=== PATIENT | male | born 1950 | race Two or more races ===

== ENCOUNTER 2024-06-27 12:44 | Inpatient (IN) | payer OTHER ==
[~2024-06-27] VITALS: Ht 170.2 cm; Wt 52.2 kg
[2024-06-27] MEDS ORDERED: AMLODIPINE-OLM1 EAC2 PO (14:01)
[2024-06-27] MEDS ORDERED: HYDROCHLOROTHIA25 MG PO (14:01)
[2024-06-27] MEDS ORDERED: NORVASC5 MG PO (14:01)
--- NOTE | 2024-06-27 14:03 | NUR ---
PTE ALERTA Y ORIENTADO X3 EN COMPANIA DE FAMILIAR EL CUAL REFIERE TRAER A PTE POR REFERIDO MEDICO DR. FREEDMAN (PNEUMOLOGO) POR LIQUIDOS ACUMULADOS EN AMBOS PULMONES. SE MIDEN S/V Y SE UBICA.
[2024-06-27] MEDS ORDERED: 0.9 % SODIUM CHLORIDE 1,000 ML IV SCH ×2 (14:30→19:30)
[2024-06-27 15:11] LABS: PH,URINE 5.5 (5.0-8.0); URINE APPEARANCE Turbid; URINE BILIRRUBIN Small (NEGATIVE); URINE BLOOD Negative; URINE COLOR Orange; URINE GLUCOSE Negative (NEGATIVE); URINE KETONE Trace (NEGATIVE); URINE LEUKOCYTE Trace; URINE NITRATE Negative; URINE PROTEIN 30 (NEGATIVE)
[2024-06-27 15:15] LABS: URINE BACTERIA 6.2 uL (0.0-1933); URINE RBC 20.9 uL (0.0-20.8); URINE WBC 3.2 uL (0.0-23.2)
[2024-06-27 15:16] LABS: URINE CAST 1.06 uL (0.0-1.40)
[2024-06-27 15:16] LABS: CALCIUM 8.4 mg/dL (8.5-10.1); CREATININE SERUM 0.63 mg/dL (0.70-1.30); GFR 124.83; HEMOGLOBIN 11.2 g/dL (13-16.00); MEAN CELL VOLUME 92.6 fL (80.0-100.00); MEAN CORPUSCULAR HEMOGLOBIN 30.4 pg (27.00-32.0); MEAN CORPUSCULAR HGB CONC 32.9 g/dl (32.0-36.0); PLATELET COUNT 388 K/uL (150-450); POTASSIUM 4.14 mEq/L (3.5-5.1); RED BLOOD COUNT 3.68 M/uL (4.00-6.00); RED CELL DISTRIBUTION WIDTH 13.5 % (11.5-14.5)
[2024-06-27 16:36] LABS: ABG PH 7.424 (7.35-7.45); ABG PO2 78.6 mmHg (80-100); ABG pCO2 38.5 mmHg (35-45); BASE EXCESS 0.4 mmol/l; BICARBONATE 24.6 mmol/l (23-25); SaO2 95.8 %; Tco2 25.8 mmol/l; allen test SATISFACTORY; o2 21 %; puncture site RADIAL RIGHT
[2024-06-27] MEDS ORDERED: IPRATROPIUM BROMIDE 0.5 MG/2.5 ML AMPUL.NEB IH SCH (19:29)
[2024-06-27] MEDS ORDERED: VANCOMYCIN HCL 1,000 MG VIAL IV SCH (19:31)
[2024-06-27] MEDS ORDERED: PIPERACILLIN/TAZOBACTAM SODIUM 3.375 GM in DEXTROSE 5 % IN WATER 100 ML IV SCH (19:31)
[2024-06-27] MEDS ORDERED: ACETAMINOPHEN 500 MG GEL..CAP PO PRN (19:45)
[2024-06-27] MEDS ORDERED: 0.9 % SODIUM CHLORIDE 500 ML IV ONE (19:45)
[2024-06-28] VITALS (8 sets, daily range): BP systolic 110–117; BP diastolic 65–70; O2SAT 93–97
[2024-06-28 01:16] LABS: INR 1.26; PARTIAL THROMBOPLASTIN TIME 34.5 SECONDS (22.0-34.0); PROTHROMBIN TIME 13.5 SECONDS (9.0-11.5)
[2024-06-28] MEDS ORDERED: FAMOTIDINE/PF 20 MG in 0.9 % SODIUM CHLORIDE 8 ML IV PUSH SCH (09:00)
[2024-06-28] MEDS ORDERED: ENOXAPARIN SODIUM 40 MG/0.4 ML SYRINGE SUBCUTANEO SCH (09:00)
[2024-06-28 11:07] LABS: ALBUMIN 1.9 gm/dL (3.4-5.0); CALCIUM 7.9 mg/dL (8.5-10.1); CREATININE SERUM 0.5 mg/dL (0.70-1.30); GFR 162.99; POTASSIUM 3.99 mEq/L (3.5-5.1)
[2024-06-28] MEDS ORDERED: LACTOBACILLUS ACIDOPHILUS 1 CAP CAP PO SCH (17:00)
[2024-06-28 19:33] LABS: PLEURAL FLUID APPEARANCE CLOUDY; PLEURAL FLUID COLOR YELLOW
[2024-06-28 19:59] LABS: TP PLEURAL FLUID 4.2 g/dl
[2024-06-28 20:01] LABS: CHOL PLEURAL FLUID < 50 mg/dl; GLU PLEURAL FLUID < 1 mg/dl; LDH PLEURAL FLUID 1457 U/L
[2024-06-28 20:08] LABS: MONONUCLEAR 6 %; POLYMORPHONUCLEAR 94 %
[2024-06-28] MEDS ORDERED: fentaNYL CITRATE 50 MCG/ML AMPUL IV ONE (21:15)
[2024-06-28] MEDS ORDERED: MEPERIDINE HCL 25 MG/ML AMPUL IM PRN (23:00)
[2024-06-29] VITALS (9 sets, daily range): BP systolic 102–125; BP diastolic 59–75; O2SAT 94–97
[2024-06-30] VITALS (9 sets, daily range): BP systolic 111–131; BP diastolic 64–73; O2SAT 90–98
[2024-06-30 08:05] LABS: HEMATOCRIT 35.9 % (39.0-48.0); HEMOGLOBIN 12.1 g/dL (13-16.00); MEAN CELL VOLUME 91.3 fL (80.0-100.00); MEAN CORPUSCULAR HEMOGLOBIN 30.8 pg (27.00-32.0); MEAN CORPUSCULAR HGB CONC 33.7 g/dl (32.0-36.0); PLATELET COUNT 336 K/uL (150-450); RED BLOOD COUNT 3.93 M/uL (4.00-6.00); RED CELL DISTRIBUTION WIDTH 13.3 % (11.5-14.5)
[2024-06-30 08:53] LABS: ALBUMIN 1.7 gm/dL (3.4-5.0); BILIRUBIN TOTAL 0.71 mg/dL (0.3-1.2); CALCIUM 7.6 mg/dL (8.5-10.1); CREATININE SERUM 0.39 mg/dL (0.70-1.30); GFR 217.11; POTASSIUM 3.61 mEq/L (3.5-5.1); TOTAL PROTEIN 4.7 gm/dL (6.4-8.2)
[2024-06-30] MEDS ORDERED: SODIUM CHLORIDE 0.45 % 1,000 ML IV SCH (13:00)
[2024-06-30] MEDS ORDERED: VANCOMYCIN HCL 5 MG/ML REDILUIDO IV SCH (17:00)
[2024-07-01] VITALS (9 sets, daily range): BP systolic 117–131; BP diastolic 65–75; O2SAT 90–98
[2024-07-01 18:46] LABS: HEMATOCRIT 36.6 % (39.0-48.0); HEMOGLOBIN 12.4 g/dL (13-16.00); MEAN CELL VOLUME 91.5 fL (80.0-100.00); MEAN CORPUSCULAR HGB CONC 33.8 g/dl (32.0-36.0); PLATELET COUNT 291 K/uL (150-450); RED CELL DISTRIBUTION WIDTH 13.9 % (11.5-14.5)
[2024-07-01] MEDS ORDERED: FAMOTIDINE/PF 20 MG in 0.9 % SODIUM CHLORIDE 8 ML IV PUSH SCH (21:00)
[2024-07-02] VITALS (10 sets, daily range): BP systolic 109–122; BP diastolic 63–75; O2SAT 90–98
[2024-07-03] VITALS (8 sets, daily range): BP systolic 117–134; BP diastolic 63–78; O2SAT 90–100
[2024-07-03 11:25] LABS: HEMATOCRIT 38.7 % (39.0-48.0); HEMOGLOBIN 13.1 g/dL (13-16.00); MEAN CELL VOLUME 90.2 fL (80.0-100.00); MEAN CORPUSCULAR HEMOGLOBIN 30.5 pg (27.00-32.0); MEAN CORPUSCULAR HGB CONC 33.9 g/dl (32.0-36.0); PLATELET COUNT 321 K/uL (150-450); RED BLOOD COUNT 4.29 M/uL (4.00-6.00); RED CELL DISTRIBUTION WIDTH 13.6 % (11.5-14.5)
[2024-07-03 12:39] LABS: ALBUMIN 1.9 gm/dL (3.4-5.0); BILIRUBIN TOTAL 0.94 mg/dL (0.3-1.2); CALCIUM 7.9 mg/dL (8.5-10.1); CREATININE SERUM 0.48 mg/dL (0.70-1.30); GFR 170.85; GLOBULINA 3.4 G/DL (2.4-3.5); TOTAL PROTEIN 5.3 gm/dL (6.4-8.2)
[2024-07-03 13:42] LABS: C-REACTIVE PROTEIN 5.71 MG/DL (0.00-0.29)
[2024-07-03 13:44] LABS: POTASSIUM 2.93 mEq/L (3.5-5.1)
[2024-07-04] VITALS (8 sets, daily range): BP systolic 120–136; BP diastolic 66–74; O2SAT 95–100
[2024-07-04] MEDS ORDERED: POTASSIUM CHLORIDE IN WATER 40 MEQ/100 ML PIGGYBAG IV NR (11:30)
[2024-07-05] VITALS (9 sets, daily range): BP systolic 114–157; BP diastolic 68–84; O2SAT 90–100
[2024-07-05] MEDS ORDERED: FAMOtidine 20 MG TABLET PO SCH (09:00)
[2024-07-05] MEDS ORDERED: BENZONATATE 100 MG CAPSULE PO SCH (18:30)
[2024-07-06] VITALS (8 sets, daily range): BP systolic 128–156; BP diastolic 69–72; O2SAT 89–99
[2024-07-06 08:17] LABS: HEMATOCRIT 35.9 % (39.0-48.0); HEMOGLOBIN 12.4 g/dL (13-16.00); MEAN CELL VOLUME 88.7 fL (80.0-100.00); MEAN CORPUSCULAR HEMOGLOBIN 30.6 pg (27.00-32.0); MEAN CORPUSCULAR HGB CONC 34.5 g/dl (32.0-36.0); PLATELET COUNT 280 K/uL (150-450); RED BLOOD COUNT 4.05 M/uL (4.00-6.00); RED CELL DISTRIBUTION WIDTH 13.8 % (11.5-14.5)
[2024-07-06 08:33] LABS: ALBUMIN 1.9 gm/dL (3.4-5.0); BILIRUBIN TOTAL 0.77 mg/dL (0.3-1.2); CALCIUM 7.8 mg/dL (8.5-10.1); CREATININE SERUM 0.44 mg/dL (0.70-1.30); GFR 188.9; GLOBULINA 3.3 G/DL (2.4-3.5); POTASSIUM 3.31 mEq/L (3.5-5.1); TOTAL PROTEIN 5.2 gm/dL (6.4-8.2)
[2024-07-06 08:57] LABS: C-REACTIVE PROTEIN 4.06 MG/DL (0.00-0.29)
[2024-07-06] MEDS ORDERED: BENZONATATE 200 MG CAPSULE PO SCH (09:00)
[2024-07-06 09:11] LABS: ERYTHROCYTE SEDIMENTATION RATE 38 mm/hr
[2024-07-06] MEDS ORDERED: AMPICILLIN SODIUM 2,000 MG VIAL IV SCH (12:00)
[2024-07-06] MEDS ORDERED: MEROPENEM 500 MG/VIAL VIAL IV SCH (12:00)
[2024-07-06] MEDS ORDERED: AMPICILLIN SODIUM 2,000 MG in 0.9 % SODIUM CHLORIDE 100 ML IV SCH (12:00)
[2024-07-06] MEDS ORDERED: POTASSIUM CHLORIDE IN WATER 100 ML IV NR (14:45)
[2024-07-06] MEDS ORDERED: FLUCONAZOLE IN NACL,ISO-OSM 50 ML IV SCH (17:00)
[2024-07-07] VITALS (9 sets, daily range): BP systolic 120–130; BP diastolic 67–69; O2SAT 93–100
[2024-07-07] MEDS ORDERED: FLUCONAZOLE IN NACL,ISO-OSM 2 MG/ML ML IV SCH (17:00)
[2024-07-07 19:30] LABS: URINE APPEARANCE Turbid; URINE BILIRRUBIN Negative (NEGATIVE); URINE BLOOD Negative; URINE COLOR Yellow; URINE GLUCOSE Negative (NEGATIVE); URINE KETONE Trace (NEGATIVE); URINE LEUKOCYTE Negative; URINE NITRATE Negative; URINE PROTEIN Negative (NEGATIVE)
[2024-07-07 19:33] LABS: URINE EPITHELIAL CELLS 11.1 uL (0.0-38.8); URINE RBC 13.5 uL (0.0-20.8); URINE WBC 3.4 uL (0.0-23.2)
[2024-07-07 19:35] LABS: URINE CAST 0.76 uL (0.0-1.40)
[2024-07-08] VITALS (10 sets, daily range): BP systolic 117–157; BP diastolic 66–85; O2SAT 90–99
[2024-07-08 06:59] LABS: HEMATOCRIT 33.3 % (39.0-48.0); HEMOGLOBIN 11.6 g/dL (13-16.00); MEAN CELL VOLUME 88.4 fL (80.0-100.00); MEAN CORPUSCULAR HEMOGLOBIN 30.9 pg (27.00-32.0); PLATELET COUNT 293 K/uL (150-450); RED BLOOD COUNT 3.76 M/uL (4.00-6.00); RED CELL DISTRIBUTION WIDTH 14.1 % (11.5-14.5)
[2024-07-08 20:28] LABS: ABG PH 7.419 (7.35-7.45); ABG pCO2 47.3 mmHg (35-45); BASE EXCESS 4.4 mmol/l; BICARBONATE 29.9 mmol/l (23-25); SaO2 93.6 %; Tco2 31.3 mmol/l
[2024-07-08 21:09] LABS: allen test SATISFACTORY; o2 44 %; puncture site RADIAL RIGHT
[2024-07-09] VITALS (7 sets, daily range): BP systolic 114–134; BP diastolic 59–68; O2SAT 85–100
[2024-07-10] VITALS (7 sets, daily range): BP systolic 119–121; BP diastolic 59–69; O2SAT 97–100
[2024-07-10 06:05] LABS: HEMATOCRIT 33.1 % (39.0-48.0); MEAN CELL VOLUME 90.2 fL (80.0-100.00); MEAN CORPUSCULAR HEMOGLOBIN 30.1 pg (27.00-32.0); MEAN CORPUSCULAR HGB CONC 33.4 g/dl (32.0-36.0); PLATELET COUNT 284 K/uL (150-450); RED BLOOD COUNT 3.67 M/uL (4.00-6.00); RED CELL DISTRIBUTION WIDTH 14.1 % (11.5-14.5)
[2024-07-10 06:30] LABS: ALBUMIN 1.8 gm/dL (3.4-5.0); CALCIUM 8.1 mg/dL (8.5-10.1); CREATININE SERUM 0.4 mg/dL (0.70-1.30); GFR 210.86; GLOBULINA 3.4 G/DL (2.4-3.5); POTASSIUM 3.8 mEq/L (3.5-5.1); TOTAL PROTEIN 5.2 gm/dL (6.4-8.2)
[2024-07-10 06:47] LABS: C-REACTIVE PROTEIN 7.49 MG/DL (0.00-0.29)
[2024-07-10 21:43] LABS: PLEURAL FLUID APPEARANCE HAZY; PLEURAL FLUID COLOR YELLOW
[2024-07-10 21:55] LABS: TP PLEURAL FLUID 1.8 g/dl
[2024-07-10 22:22] LABS: POLYMORPHONUCLEAR 30 %
[2024-07-10 22:23] LABS: MONONUCLEAR 70 %
[2024-07-11] VITALS (8 sets, daily range): BP systolic 120–130; BP diastolic 66–72; O2SAT 84–100
[2024-07-11] MEDS ORDERED: VITAMIN B COMPLEX/LYSINE 1 ML ML PO SCH (17:00)
[2024-07-12] VITALS (10 sets, daily range): BP systolic 130–138; BP diastolic 57–76; O2SAT 90–100
[2024-07-13] VITALS (8 sets, daily range): BP systolic 127–166; BP diastolic 67–71; O2SAT 91–98
[2024-07-13 08:30] LABS: ALBUMIN 1.7 gm/dL (3.4-5.0); BILIRUBIN TOTAL 0.88 mg/dL (0.3-1.2); CALCIUM 7.9 mg/dL (8.5-10.1); CREATININE SERUM 0.35 mg/dL (0.70-1.30); GFR 245.99; GLOBULINA 3.4 G/DL (2.4-3.5); POTASSIUM 3.74 mEq/L (3.5-5.1); TOTAL PROTEIN 5.1 gm/dL (6.4-8.2)
[2024-07-13 08:32] LABS: C-REACTIVE PROTEIN 11.5 MG/DL (0.00-0.29)
[2024-07-13 08:40] LABS: HEMATOCRIT 30.4 % (39.0-48.0); HEMOGLOBIN 10.3 g/dL (13-16.00); MEAN CELL VOLUME 90.2 fL (80.0-100.00); MEAN CORPUSCULAR HEMOGLOBIN 30.4 pg (27.00-32.0); MEAN CORPUSCULAR HGB CONC 33.7 g/dl (32.0-36.0); PLATELET COUNT 279 K/uL (150-450); RED BLOOD COUNT 3.37 M/uL (4.00-6.00); RED CELL DISTRIBUTION WIDTH 14.4 % (11.5-14.5)
[2024-07-13 08:45] LABS: ERYTHROCYTE SEDIMENTATION RATE 54 mm/hr
[2024-07-14] VITALS (8 sets, daily range): BP systolic 131–147; BP diastolic 58–67; O2SAT 90–99
[2024-07-14 18:43] LABS: CALCIUM 7.9 mg/dL (8.5-10.1); CREATININE SERUM 0.35 mg/dL (0.70-1.30); GFR 245.99; POTASSIUM 3.52 mEq/L (3.5-5.1)
[2024-07-14] MEDS ORDERED: VANCOMYCIN HCL 5 MG/ML REDILUIDO IV SCH (21:00)
[2024-07-15] VITALS (8 sets, daily range): BP systolic 124–132; BP diastolic 71–74; O2SAT 90–100
[2024-07-15] MEDS ORDERED: levoFLOXacin IN DEXTROSE 5 % 5 MG/ML PIGGYBAG IV SCH (09:00)
[2024-07-15] MEDS ORDERED: ALTEPLASE 2 MG VIAL SPEPROC SCH (09:00)
[2024-07-15] MEDS ORDERED: DORNASE ALFA 1 MG/ML AMPUL.NEB SPEPROC SCH (09:00)
[2024-07-16] VITALS (10 sets, daily range): BP systolic 120–137; BP diastolic 70–76; O2SAT 88–100
[2024-07-16 06:12] LABS: HEMATOCRIT 31.9 % (39.0-48.0); HEMOGLOBIN 10.8 g/dL (13-16.00); MEAN CELL VOLUME 89.5 fL (80.0-100.00); MEAN CORPUSCULAR HEMOGLOBIN 30.3 pg (27.00-32.0); MEAN CORPUSCULAR HGB CONC 33.9 g/dl (32.0-36.0); PLATELET COUNT 310 K/uL (150-450); RED BLOOD COUNT 3.56 M/uL (4.00-6.00); RED CELL DISTRIBUTION WIDTH 13.9 % (11.5-14.5)
[2024-07-16] MEDS ORDERED: AMINO ACIDS/PROTEIN HYDROLYS 30 ML BLIST.PACK PO SCH (13:00)
[2024-07-16] MEDS ORDERED: BUDESONIDE 0.5 MG/2 ML AMPUL.NEB IH SCH (18:11)
[2024-07-16 18:48] LABS: ABG PO2 77.1 mmHg (80-100); BASE EXCESS 5.4 mmol/l; SaO2 95.3 %
[2024-07-16 18:49] LABS: Tco2 33.6 mmol/l; allen test SATISFACTORY; o2 100 %; puncture site RADIAL RIGHT
[2024-07-16] MEDS ORDERED: IPRATROPIUM BROMIDE 0.5 MG/2.5 ML AMPUL.NEB IH SCH (20:00)
[2024-07-16] MEDS ORDERED: VANCOMYCIN HCL 5 MG/ML REDILUIDO IV SCH (21:00)
[2024-07-16] MEDS ORDERED: 0.9 % SODIUM CHLORIDE 1,000 ML IV SCH (21:30)
[2024-07-17] VITALS (8 sets, daily range): BP systolic 120–154; BP diastolic 70–74; O2SAT 99–100
[2024-07-17 11:03] LABS: ABG PH 7.488 (7.35-7.45); ABG PO2 438.2 mmHg (80-100); ABG pCO2 45.3 mmHg (35-45); BASE EXCESS 8.9 mmol/l; BICARBONATE 33.5 mmol/l (23-25); Tco2 34.9 mmol/l; allen test SATISFACTORY; o2 100 %; puncture site RADIAL LEFT
[2024-07-18] VITALS (9 sets, daily range): BP systolic 124–146; BP diastolic 74–76; O2SAT 90–100
[2024-07-19] VITALS (9 sets, daily range): BP systolic 136–146; BP diastolic 66–75; O2SAT 90–100
[2024-07-20] VITALS (8 sets, daily range): BP systolic 142–153; BP diastolic 72–76; O2SAT 90–100
[2024-07-20 08:26] LABS: ALBUMIN 1.6 gm/dL (3.4-5.0); BILIRUBIN TOTAL 0.62 mg/dL (0.3-1.2); CALCIUM 7.8 mg/dL (8.5-10.1); GFR 653.97; GLOBULINA 3.2 G/DL (2.4-3.5); POTASSIUM 3.1 mEq/L (3.5-5.1); TOTAL PROTEIN 4.8 gm/dL (6.4-8.2)
[2024-07-20 08:34] LABS: HEMATOCRIT 29.4 % (39.0-48.0); HEMOGLOBIN 10.2 g/dL (13-16.00); MEAN CELL VOLUME 87.8 fL (80.0-100.00); MEAN CORPUSCULAR HEMOGLOBIN 30.5 pg (27.00-32.0); MEAN CORPUSCULAR HGB CONC 34.8 g/dl (32.0-36.0); PLATELET COUNT 254 K/uL (150-450); RED BLOOD COUNT 3.35 M/uL (4.00-6.00); RED CELL DISTRIBUTION WIDTH 13.9 % (11.5-14.5)
[2024-07-20 08:54] LABS: CREATININE SERUM 0.15 mg/dL (0.70-1.30)
[2024-07-20] MEDS ORDERED: POTASSIUM CHLORIDE 20MEQ/100ML H2O PB IV NR (12:00)
[2024-07-21] VITALS (9 sets, daily range): BP systolic 126–137; BP diastolic 71–79; O2SAT 88–100
[2024-07-22] VITALS (8 sets, daily range): BP systolic 130–131; BP diastolic 74–81; O2SAT 90–100
[2024-07-22 06:14] LABS: HEMATOCRIT 30.6 % (39.0-48.0); HEMOGLOBIN 10.7 g/dL (13-16.00); MEAN CELL VOLUME 87.1 fL (80.0-100.00); MEAN CORPUSCULAR HEMOGLOBIN 30.4 pg (27.00-32.0); MEAN CORPUSCULAR HGB CONC 34.9 g/dl (32.0-36.0); PLATELET COUNT 243 K/uL (150-450); RED BLOOD COUNT 3.52 M/uL (4.00-6.00); RED CELL DISTRIBUTION WIDTH 14.2 % (11.5-14.5)
[2024-07-22 06:53] LABS: ALBUMIN 1.6 gm/dL (3.4-5.0); BILIRUBIN TOTAL 0.85 mg/dL (0.3-1.2); CALCIUM 7.8 mg/dL (8.5-10.1); CREATININE SERUM 0.26 mg/dL (0.70-1.30); GFR 346.65; GLOBULINA 3.3 G/DL (2.4-3.5); MAGNESIUM 1.7 mg/dL (1.8-2.4); PHOSPHOROUS 2.1 mg/dL (2.5-4.9); POTASSIUM 3.09 mEq/L (3.5-5.1); TOTAL PROTEIN 4.9 gm/dL (6.4-8.2)
[2024-07-22] MEDS ORDERED: POTASSIUM PHOS,M-BASIC-D-BASIC 18 MM in 0.9 % SODIUM CHLORIDE 500 ML IV NR (10:00)
[2024-07-22] MEDS ORDERED: MAGNESIUM SULFATE IN WATER 4GM/50ML PIGGYBAG IV NR (10:00)
[2024-07-22] MEDS ORDERED: POTASSIUM CHLORIDE IN WATER 100 ML IV NR (10:00)
[2024-07-22 11:16] LABS: ABG PO2 44.3 mmHg (80-100); ABG pCO2 82.4 mmHg (35-45); BASE EXCESS 8.4 mmol/l; BICARBONATE 38.7 mmol/l (23-25); SaO2 75.3 %; Tco2 41.2 mmol/l; allen test SATISFACTORY; o2 100 %; puncture site RADIAL RIGHT
[2024-07-22 13:18] LABS: ABG PH 7.254 (7.35-7.45)
[2024-07-22 13:19] LABS: ABG PO2 221.9 mmHg (80-100); ABG pCO2 82.9 mmHg (35-45); BASE EXCESS 5.4 mmol/l; BICARBONATE 35.9 mmol/l (23-25); SaO2 99.6 %; Tco2 38.4 mmol/l; allen test SATISFACTORY; o2 100 %; puncture site RADIAL RIGHT
[2024-07-23] VITALS (8 sets, daily range): BP systolic 125–130; BP diastolic 68–81; O2SAT 94–100
[2024-07-23 10:21] LABS: ABG PH 7.448 (7.35-7.45); BASE EXCESS 8.7 mmol/l; BICARBONATE 34.4 mmol/l (23-25); SaO2 99.5 %; allen test SATISFACTORY; o2 50 %; puncture site RADIAL RIGHT
[2024-07-23 15:59] LABS: CALCIUM 8.6 mg/dL (8.5-10.1); PHOSPHOROUS 3.6 mg/dL (2.5-4.9)
[2024-07-23] MEDS ORDERED: ENOXAPARIN SODIUM 60 MG/0.6 ML SYRINGE SUBCUTANEO SCH (17:00)
[2024-07-24] VITALS (7 sets, daily range): BP systolic 135–160; BP diastolic 75–89; O2SAT 90–100
[2024-07-24 10:51] LABS: ABG PH 7.413 (7.35-7.45); ABG PO2 192.7 mmHg (80-100); ABG pCO2 49.4 mmHg (35-45); BASE EXCESS 5.1 mmol/l; BICARBONATE 30.9 mmol/l (23-25); SaO2 99.7 %; Tco2 32.4 mmol/l; allen test SATISFACTORY; o2 50 %; puncture site RADIAL LEFT
[2024-07-24 13:54] LABS: ABG PH 7.428 (7.35-7.45); ABG pCO2 52.7 mmHg (35-45)
[2024-07-24 13:55] LABS: ABG PO2 117.3 mmHg (80-100); BASE EXCESS 7.9 mmol/l; SaO2 98.8 %; Tco2 35.7 mmol/l; allen test SATISFACTORY; o2 50 %; puncture site RADIAL LEFT
[2024-07-25] VITALS (7 sets, daily range): BP systolic 135–148; BP diastolic 71–79; O2SAT 97–100
[2024-07-25 05:01] LABS: HEMATOCRIT 32.4 % (39.0-48.0); HEMOGLOBIN 11.2 g/dL (13-16.00); MEAN CELL VOLUME 87.6 fL (80.0-100.00); MEAN CORPUSCULAR HEMOGLOBIN 30.2 pg (27.00-32.0); MEAN CORPUSCULAR HGB CONC 34.5 g/dl (32.0-36.0); PLATELET COUNT 266 K/uL (150-450); RED BLOOD COUNT 3.69 M/uL (4.00-6.00); RED CELL DISTRIBUTION WIDTH 14.6 % (11.5-14.5)
[2024-07-25] MEDS ORDERED: ENOXAPARIN SODIUM 40 MG/0.4 ML SYRINGE SUBCUTANEO SCH (09:00)
[2024-07-26] VITALS (9 sets, daily range): BP systolic 120–157; BP diastolic 75–80; O2SAT 89–99
[2024-07-26] MEDS ORDERED: LINEZOLID IN DEXTROSE 5% 600 MG/300 ML PIGGYBAG IV NR (10:00)
[2024-07-26] MEDS ORDERED: AZTREONAM 1,000 MG VIAL IV NR (10:00)
[2024-07-26 10:41] LABS: PH,URINE 5.5 (5.0-8.0); URINE APPEARANCE Clear; URINE BILIRRUBIN Negative (NEGATIVE); URINE BLOOD Moderate; URINE COLOR Yellow; URINE GLUCOSE Negative (NEGATIVE); URINE KETONE Negative (NEGATIVE); URINE LEUKOCYTE Trace; URINE NITRATE Negative; URINE PROTEIN 30 (NEGATIVE)
[2024-07-26 10:46] LABS: URINE BACTERIA 530.4 uL (0.0-1933); URINE CAST 3.51 uL (0.0-1.40); URINE EPITHELIAL CELLS 39.1 uL (0.0-38.8); URINE RBC 652.1 uL (0.0-20.8)
[2024-07-26] MEDS ORDERED: AZTREONAM 1,000 MG VIAL IV SCH (17:00)
[2024-07-26] MEDS ORDERED: METRONIDAZOLE/SODIUM CHLORIDE 500 MG/100 ML PIGGYBACK IV SCH (17:00)
[2024-07-26] MEDS ORDERED: LINEZOLID IN DEXTROSE 5% 300 ML IV SCH (21:00)
[2024-07-27 00:19] VITALS: O2SAT 98
[2024-07-27 03:00] VITALS: BP 121/75
[2024-07-27 03:28] VITALS: O2SAT 96
[2024-07-27 07:00] LABS: HEMATOCRIT 31.6 % (39.0-48.0); HEMOGLOBIN 10.9 g/dL (13-16.00); MEAN CELL VOLUME 88.7 fL (80.0-100.00); MEAN CORPUSCULAR HEMOGLOBIN 30.5 pg (27.00-32.0); MEAN CORPUSCULAR HGB CONC 34.4 g/dl (32.0-36.0); PLATELET COUNT 204 K/uL (150-450); RED BLOOD COUNT 3.56 M/uL (4.00-6.00); RED CELL DISTRIBUTION WIDTH 14.1 % (11.5-14.5)
[2024-07-27 08:41] LABS: ALBUMIN 1.8 gm/dL (3.4-5.0); BILIRUBIN TOTAL 0.75 mg/dL (0.3-1.2); CALCIUM 7.9 mg/dL (8.5-10.1); CREATININE SERUM 0.39 mg/dL (0.70-1.30); GFR 217.11; TOTAL PROTEIN 4.8 gm/dL (6.4-8.2)
[2024-07-27] MEDS ORDERED: FAMOTIDINE/PF 20 MG/2 ML VIAL IV SCH (09:00)
[2024-07-27 09:01] VITALS: BP 133/80; O2SAT 97
[2024-07-27 09:22] LABS: POTASSIUM 2.9 mEq/L (3.5-5.1)
[2024-07-27 09:31] VITALS: O2SAT 91
[2024-07-27] MEDS ORDERED: POTASSIUM CHLORIDE 20MEQ/100ML H2O PB IV SCH (12:00)
[2024-07-27] MEDS ORDERED: EMOLLIENTS 6 OZ BOTTLE TOP SCH ×2 (13:00)
[2024-07-27 15:49] VITALS: BP 122/74; O2SAT 100
[2024-07-27] MEDS ORDERED: AA 4.25%/CAL/LYTES/DEXT 5% 1,000 ML PERIFERAL SCH (17:00)
[2024-07-28] VITALS (8 sets, daily range): BP systolic 126–150; BP diastolic 79–85; O2SAT 93–954
[2024-07-28 08:07] LABS: MEAN CELL VOLUME 87.7 fL (80.0-100.00); PLATELET COUNT 138 K/uL (150-450); RED BLOOD COUNT 2.66 M/uL (4.00-6.00); RED CELL DISTRIBUTION WIDTH 14.5 % (11.5-14.5)
[2024-07-28 08:14] LABS: HEMATOCRIT 23.3 % (39.0-48.0); MEAN CORPUSCULAR HEMOGLOBIN 30.8 pg (27.00-32.0)
[2024-07-28 08:15] LABS: HEMOGLOBIN 8.2 g/dL (13-16.00)
[2024-07-28] MEDS ORDERED: SOD FERRIC GLUC COMPLX/SUCROSE 62.5 MG in 0.9 % SODIUM CHLORIDE 50 ML IV NR (11:15)
[2024-07-29] VITALS (10 sets, daily range): BP systolic 123–130; BP diastolic 75–80; O2SAT 98–100
[2024-07-29 06:18] LABS: HEMATOCRIT 30.2 % (39.0-48.0); HEMOGLOBIN 10.3 g/dL (13-16.00); MEAN CELL VOLUME 87.7 fL (80.0-100.00); MEAN CORPUSCULAR HEMOGLOBIN 29.8 pg (27.00-32.0); PLATELET COUNT 169 K/uL (150-450); RED BLOOD COUNT 3.44 M/uL (4.00-6.00); RED CELL DISTRIBUTION WIDTH 14.1 % (11.5-14.5)
[2024-07-29 06:47] LABS: INR 1.44
[2024-07-29 06:49] LABS: PARTIAL THROMBOPLASTIN TIME 47.8 SECONDS (22.0-34.0); PROTHROMBIN TIME 15.3 SECONDS (9.0-11.5)
[2024-07-29 06:56] LABS: ALBUMIN 1.6 gm/dL (3.4-5.0); BILIRUBIN TOTAL 0.64 mg/dL (0.3-1.2); BILIRUBIN,CONJUGATED 0.23 mg/dL (0.0-0.2); BILIRUBIN,UNCONJUGATED 0.41 mg/dL (0.0-0.6); CALCIUM 7.6 mg/dL (8.5-10.1); CHOL HDL RATIO 2.7 (0-5.0); CREATININE SERUM 0.34 mg/dL (0.70-1.30); GFR 254.36; GLOBULINA 3.1 G/DL (2.4-3.5); MAGNESIUM 1.8 mg/dL (1.8-2.4); POTASSIUM 3.77 mEq/L (3.5-5.1); TOTAL PROTEIN 4.7 gm/dL (6.4-8.2)
[2024-07-29 07:27] LABS: MANUAL PLATELET COUNT 256
[2024-07-29 10:12] LABS: ABG PH 7.399 (7.35-7.45); ABG PO2 177.7 mmHg (80-100); ABG pCO2 55.4 mmHg (35-45); BASE EXCESS 6.8 mmol/l; BICARBONATE 33.5 mmol/l (23-25); SaO2 99.6 %; Tco2 35.2 mmol/l; puncture site RADIAL RIGHT
[2024-07-29 10:13] LABS: allen test SATISFACTORY; o2 100 %
[2024-07-29 12:18] LABS: UREA CLEARANCE 27.9 ML/MIN
[2024-07-30] VITALS (9 sets, daily range): BP systolic 116–136; BP diastolic 71–82; O2SAT 90–100
[2024-07-30] MEDS ORDERED: SOD FERRIC GLUC COMPLX/SUCROSE 62.5 MG in 0.9 % SODIUM CHLORIDE 50 ML IV SCH (09:00)
[2024-07-30 10:15] LABS: ABG PH 7.385 (7.35-7.45); ABG PO2 110.6 mmHg (80-100); ABG pCO2 56.5 mmHg (35-45); BASE EXCESS 6.1 mmol/l; SaO2 98.3 %; Tco2 34.8 mmol/l
[2024-07-30 10:16] LABS: allen test SATISFACTORY; o2 32 %; puncture site RADIAL RIGHT
[2024-07-30] MEDS ORDERED: AMINO ACIDS 4.25%/DEXTROSE 10% 1,000 ML CENTRAL SCH (17:00)
[2024-07-31] VITALS (16 sets, daily range): BP systolic 64–123; BP diastolic 30–83; O2SAT 77–100
[2024-07-31 05:09] LABS: HEMATOCRIT 25.8 % (39.0-48.0); MEAN CELL VOLUME 86.8 fL (80.0-100.00); MEAN CORPUSCULAR HGB CONC 34.6 g/dl (32.0-36.0); RED BLOOD COUNT 2.97 M/uL (4.00-6.00); RED CELL DISTRIBUTION WIDTH 14.1 % (11.5-14.5)
[2024-07-31 05:11] LABS: HEMOGLOBIN 8.9 g/dL (13-16.00); MEAN CORPUSCULAR HEMOGLOBIN 29.9 pg (27.00-32.0); PLATELET COUNT 66 K/uL (150-450)
[2024-07-31] MEDS ORDERED: NOREPINEPHRINE BITARTRATE 4 MG in DEXTROSE 5 % IN WATER 250 ML IV SCH (15:30)
[2024-07-31] MEDS ORDERED: ANIDULAFUNGIN 100 MG VIAL IV NR (16:00)
[2024-07-31] MEDS ORDERED: HYDROCORTISONE SODIUM SUCC/PF 100 MG VIAL IV SCH (17:00)
[2024-07-31] MEDS ORDERED: Daptomycin 350 MG/VIAL VIAL IV SCH (17:00)
[2024-07-31] MEDS ORDERED: CEFTAZIDIME/AVIBACTAM 2.5 GM VIAL IV SCH (21:00)
[2024-07-31 23:17] LABS: URINE APPEARANCE Cloudy; URINE BILIRRUBIN Small (NEGATIVE); URINE BLOOD Large; URINE COLOR Dark Yellow; URINE GLUCOSE Negative (NEGATIVE); URINE KETONE Negative (NEGATIVE); URINE LEUKOCYTE Small; URINE NITRATE Positive; URINE PROTEIN 30 (NEGATIVE)
[2024-07-31 23:20] LABS: URINE BACTERIA 84.4 uL (0.0-1933); URINE CAST 5.95 uL (0.0-1.40); URINE EPITHELIAL CELLS 29.6 uL (0.0-38.8); URINE RBC 940.5 uL (0.0-20.8); URINE WBC 102.3 uL (0.0-23.2)
[2024-08-01] VITALS (9 sets, daily range): BP systolic 85–103; BP diastolic 50–59; O2SAT 96–100
[2024-08-01 12:26] LABS: ABG pCO2 33.6 mmHg (35-45); BASE EXCESS 3.6 mmol/l
[2024-08-01 12:27] LABS: BICARBONATE 26.2 mmol/l (23-25); Tco2 27.2 mmol/l; allen test SATISFACTORY; o2 100 %; puncture site RADIAL LEFT
[2024-08-01] MEDS ORDERED: ANIDULAFUNGIN 100 MG VIAL IV SCH (17:00)
[2024-08-01] MEDS ORDERED: HYDROCORTISONE SODIUM SUCC/PF 50 MG/ML ML IV SCH (17:00)
[2024-08-01] MEDS ORDERED: FUROsemide 20 MG/2 ML VIAL IV SCH (22:15)
[2024-08-02] VITALS (9 sets, daily range): BP systolic 125–167; BP diastolic 68–83; O2SAT 95–99
[2024-08-02 13:38] LABS: HEMOGLOBIN 12.1 g/dL (13-16.00); MEAN CELL VOLUME 83.8 fL (80.0-100.00); MEAN CORPUSCULAR HEMOGLOBIN 28.9 pg (27.00-32.0); MEAN CORPUSCULAR HGB CONC 34.5 g/dl (32.0-36.0); RED BLOOD COUNT 4.18 M/uL (4.00-6.00); RED CELL DISTRIBUTION WIDTH 15.9 % (11.5-14.5)
[2024-08-02 13:48] LABS: PLATELET COUNT 69 K/uL (150-450)
[2024-08-03] VITALS (10 sets, daily range): BP systolic 90–131; BP diastolic 54–73; O2SAT 80–100
[2024-08-04] VITALS (8 sets, daily range): BP systolic 80–106; BP diastolic 48–52; O2SAT 84–99
[2024-08-04] MEDS ORDERED: LevETIRAcetam 500 MG/5 ML VIAL IV SCH (10:45)
[2024-08-04 12:32] LABS: ABG PH 7.008 (7.35-7.45)
[2024-08-04 12:33] LABS: ABG PO2 425.8 mmHg (80-100); BICARBONATE 29.9 mmol/l (23-25); SaO2 99.9 %; Tco2 33.7 mmol/l; allen test SATISFACTORY; o2 100 %; puncture site RADIAL RIGHT
[2024-08-04 16:14] LABS: HEMATOCRIT 36.7 % (39.0-48.0); HEMOGLOBIN 11.7 g/dL (13-16.00); MEAN CELL VOLUME 88.1 fL (80.0-100.00); MEAN CORPUSCULAR HGB CONC 31.8 g/dl (32.0-36.0); PLATELET COUNT 50 K/uL (150-450); RED BLOOD COUNT 4.17 M/uL (4.00-6.00); RED CELL DISTRIBUTION WIDTH 16.5 % (11.5-14.5)
[2024-08-04 16:45] LABS: ALBUMIN 1.5 gm/dL (3.4-5.0); BILIRUBIN TOTAL 1.42 mg/dL (0.3-1.2); CALCIUM 7.6 mg/dL (8.5-10.1); CREATININE SERUM 1.29 mg/dL (0.70-1.30); GFR 54.59; GLOBULINA 2.8 G/DL (2.4-3.5); POTASSIUM 4.1 mEq/L (3.5-5.1); TOTAL PROTEIN 4.3 gm/dL (6.4-8.2)
[2024-08-04] MEDS ORDERED: CEFTAZIDIME/AVIBACTAM 0.94GM/100ML NSS PB IV SCH (17:00)
[2024-08-05] VITALS (9 sets, daily range): BP systolic 103–121; BP diastolic 67–70; O2SAT 92–98
[2024-08-05 06:15] LABS: HEMATOCRIT 33.7 % (39.0-48.0); HEMOGLOBIN 11.1 g/dL (13-16.00); MEAN CELL VOLUME 87.4 fL (80.0-100.00); MEAN CORPUSCULAR HEMOGLOBIN 28.7 pg (27.00-32.0); MEAN CORPUSCULAR HGB CONC 32.8 g/dl (32.0-36.0); RED BLOOD COUNT 3.86 M/uL (4.00-6.00); RED CELL DISTRIBUTION WIDTH 16.3 % (11.5-14.5)
[2024-08-05 06:16] LABS: PLATELET COUNT 34 K/uL (150-450)
[2024-08-05 06:21] LABS: INR 1.73
[2024-08-05 06:33] LABS: PARTIAL THROMBOPLASTIN TIME 61.6 SECONDS (22.0-34.0); PROTHROMBIN TIME 18.1 SECONDS (9.0-11.5)
[2024-08-05 06:42] LABS: ALBUMIN 1.4 gm/dL (3.4-5.0); BILIRUBIN TOTAL 1.48 mg/dL (0.3-1.2); BILIRUBIN,CONJUGATED 0.5 mg/dL (0.0-0.2); BILIRUBIN,UNCONJUGATED 0.98 mg/dL (0.0-0.6); CALCIUM 7.4 mg/dL (8.5-10.1); CHOL HDL RATIO 3.5 (0-5.0); CREATININE SERUM 1.5 mg/dL (0.70-1.30); GFR 45.87; GLOBULINA 2.7 G/DL (2.4-3.5); POTASSIUM 4.34 mEq/L (3.5-5.1); TOTAL PROTEIN 4.1 gm/dL (6.4-8.2)
[2024-08-05 11:50] LABS: UREA CLEARANCE 0.5 ML/MIN
[2024-08-05 12:21] LABS: ABG PH 7.203 (7.35-7.45)
[2024-08-05 12:22] LABS: ABG pCO2 61.7 mmHg (35-45); BASE EXCESS -5.4 mmol/l; BICARBONATE 23.7 mmol/l (23-25); SaO2 92.6 %; Tco2 25.6 mmol/l; allen test SATISFACTORY; o2 40 %; puncture site RADIAL LEFT
[2024-08-05] MEDS ORDERED: POLYVINYL ALCOHOL 15 ML DROPS OP SCH (17:00)
[2024-08-06] VITALS (9 sets, daily range): BP systolic 75–104; BP diastolic 56–58; O2SAT 95–100
[2024-08-07] VITALS (7 sets, daily range): BP systolic 88–101; BP diastolic 53–57; O2SAT 0–99
[2024-08-07 10:48] LABS: INR 1.8
[2024-08-07 10:55] LABS: PARTIAL THROMBOPLASTIN TIME 71.9 SECONDS (22.0-34.0); PROTHROMBIN TIME 18.8 SECONDS (9.0-11.5)
[2024-08-07 11:39] LABS: ALBUMIN 1.1 gm/dL (3.4-5.0); BILIRUBIN TOTAL 1.94 mg/dL (0.3-1.2); CALCIUM 6.7 mg/dL (8.5-10.1); CREATININE SERUM 2.02 mg/dL (0.70-1.30); GFR 32.54; GLOBULINA 2.3 G/DL (2.4-3.5); POTASSIUM 5.82 mEq/L (3.5-5.1); TOTAL PROTEIN 3.4 gm/dL (6.4-8.2)
[2024-08-07 12:29] LABS: C-REACTIVE PROTEIN 1.56 MG/DL (0.00-0.29)
== END 2024-08-07 17:59 | disposition expired | DRG 871 ==
LOC: ER 12:45 → MEDI 21:32
PROVIDERS: Emergency Medicine; General Practice; Internal Medicine; Internal Medicine Geriatric Medicine; Internal Medicine Infectious Disease; Internal Medicine Pulmonary Disease; Radiology Vascular & Interventional Radiology; Specialist; ADMIT Internal Medicine; ATTEND Internal Medicine
PROC: BW24ZZZ Computerized Tomography (CT Scan) of Chest and Abdomen (ICD-10-PCS; 2024-06-27)
PROC: 0W9930Z Drainage of Right Pleural Cavity with Drainage Device, Percutaneous Approach (ICD-10-PCS; principal; 2024-06-28)
PROC: 0W9B3ZX Drainage of Left Pleural Cavity, Percutaneous Approach, Diagnostic (ICD-10-PCS; 2024-06-28)
PROC: B24BYZZ Ultrasonography of Heart with Aorta using Other Contrast (ICD-10-PCS; 2024-06-28)
PROC: 0W9930Z Drainage of Right Pleural Cavity with Drainage Device, Percutaneous Approach (ICD-10-PCS; 2024-07-08)
PROC: BW24ZZZ Computerized Tomography (CT Scan) of Chest and Abdomen (ICD-10-PCS; 2024-07-09)
PROC: 0W9B3ZX Drainage of Left Pleural Cavity, Percutaneous Approach, Diagnostic (ICD-10-PCS; 2024-07-10)
PROC: 5A09457 Assistance with Respiratory Ventilation, 24-96 Consecutive Hours, Continuous Positive Airway Pressure (ICD-10-PCS; 2024-07-22)
PROC: 0WP930Z Removal of Drainage Device from Right Pleural Cavity, Percutaneous Approach (ICD-10-PCS; 2024-07-30)
DX: A41.9 Sepsis, unspecified organism (principal); I26.99 Other pulmonary embolism without acute cor pulmonale; J18.9 Pneumonia, unspecified organism; J86.9 Pyothorax without fistula; J96.02 Acute respiratory failure with hypercapnia; R65.21 Severe sepsis with septic shock; J90 Pleural effusion, not elsewhere classified; N39.0 Urinary tract infection, site not specified; E87.4 Mixed disorder of acid-base balance; J98.11 Atelectasis; B95.5 Unspecified streptococcus as the cause of diseases classified elsewhere; D72.829 Elevated white blood cell count, unspecified; Z66 Do not resuscitate; I10 Essential (primary) hypertension; I46.9 Cardiac arrest, cause unspecified